=== PATIENT | female | born 1960 | race Caucasian/White ===

== ENCOUNTER 2019-10-23 19:59 | Emergency (ER) | payer MEDICARE ==
[~2019-10-23 19:59] MED LIST: Sodium Chloride 0.9% 100 ML BAG ONE
--- NOTE | 2019-10-23 20:36 | RAD ---
EXAM: Single view of the chest HISTORY: Pneumonia COMPARISON: None FINDINGS: Single view of the chest shows a normal sized cardiomediastinal silhouette. Scattered multi focal mixed infiltrates are seen in the lungs. There may be a small left pleural effusion. There appear to be remote right rib fractures that are healed. IMPRESSION: Multifocal pneumonia and possible small left pleural effusion
[2019-10-23 21:24] LABS: #Basophils 0.1 thou/uL (0.0-0.2); #Lymphocytes 2.3 thou/uL (1.20-3.40); #Monocytes 0.5 thou/uL (0.11-0.59); #Neutrophils 7.4 thou/uL (1.40-6.50); %Basophils 0.7 % (0.0-1.0); %Eosinophils 0.2 % (0.0-10.0); %Lymphocytes 22.7 % (21.0-51.0); %Monocytes 4.3 % (0.0-10.0); Hemoglobin 9.7 g/dL (12.0-16.0); Mean Corpuscular HGB CONC 31.9 g/dL (32.0-36.0); Mean Corpuscular Hemoglobin 31.9 pg (27.0-31.0); Mean Corpuscular Volume 99.9 fL (78.0-98.0); Mean Platelet Volume 7.7 fL (7.4-10.4); Platelet Count 332 thou/uL (130-400); RBC Distribution Width 15.7 % (11.5-14.5); Red Blood Cell (RBC) Count 3.06 mill/uL (4.20-5.40); White Blood Cell (WBC) Count 10.3 thou/uL (4.8-10.8)
[2019-10-23 21:38] LABS: Anion Gap 13 mmol/L (10-20); BUN (Urea Nitrogen) 10 mg/dL (9.8-20.1); Calc. Creatinine Clearance 0 mL/min (70-130); Calcium 7.8 mg/dL (7.8-10.44); Carbon Dioxide 33 mmol/L (22-29); Chloride 100 mmol/L (98-107); Estimated GFR-MDRD Greater than 90; Glucose 81 mg/dL (70-105); Potassium 3.6 mmol/L (3.5-5.1); Sodium 142 mmol/L (136-145)
[2019-10-23 21:59] LABS: CKMB 3.7 ng/mL (0-6.6)
[2019-10-23] MEDS ORDERED: Sodium Chloride 0.9% 500 ML ONE (22:10)
[2019-10-23] MEDS ORDERED: Cefepime 2 GM VIAL ONE (23:05)
== END 2019-10-23 23:13 | disposition short-term general hospital (02) ==
LOC: MADERS 19:59
DX: J18.9 Pneumonia, unspecified organism (principal); R09.02 Hypoxemia; I21.A1 Myocardial infarction type 2; G30.9 Alzheimer's disease, unspecified; F02.80 Dementia in other diseases classified elsewhere, unspecified severity, without behavioral disturbance, psychotic disturbance, mood disturbance, and anxiety; E03.9 Hypothyroidism, unspecified; E78.5 Hyperlipidemia, unspecified; G40.909 Epilepsy, unspecified, not intractable, without status epilepticus; F32.9 Major depressive disorder, single episode, unspecified
CPT/HCPCS: 71045; 80048; 82553; 83605; 84484; 85025; 87040; 93005; 94760; 96365; 96375; J0692; J1956; J3490; J7030